=== PATIENT | female | born 1955 | race Caucasian/White ===

== ENCOUNTER 2017-02-07 07:08 | Day surgery (SDC) | payer BC ==
[2017-02-07] MEDS ORDERED: Lactated Ringers 1,000 ML IV SCH (07:15)
--- NOTE | 2017-02-07 08:50 | PCM.OPNOTE ---
- General Post-Op/Procedure Note Date of Surgery/Procedure: 02/07/17 Operative Procedure(s): c scope Findings: diverticuli ascending and sigmoid colon Pre Op Diagnosis: screening Post-Op Diagnosis: diverticuli ascending and sigmoid colon Anesthesia Technique: MAC Primary Surgeon: Uriel Preciado Anesthesia Provider: James Ramos Pathology: none Complications: None Condition: Good Free Text/Narrative:: see dictation
[2017-02-07] MEDS ORDERED: Propofol 200 MG/20 ML SDV IV ONE (09:00)
[2017-02-07 09:52] VITALS: BP 123/72
--- NOTE | 2017-02-07 10:02 | OR ---
DATE OF OPERATION: 02/07/2017 SURGEON: Uriel Preciado MD PROCEDURE PERFORMED: Colonoscopy. PREOPERATIVE DIAGNOSIS: Need for colon cancer screening. POSTOPERATIVE DIAGNOSIS: Diverticulosis of the ascending and sigmoid colon. INDICATIONS FOR PROCEDURE: This is a 62-year-old white female, who presents for screening colonoscopy. She was offered and accepted same. DESCRIPTION OF PROCEDURE: After an excellent IV sedation was administered, digital rectal exam was performed. No marked abnormality was noted. The flexible colonoscope was inserted and advanced to the cecum without difficulty. The prep was excellent. The following findings were noted. Ascending colon, scattered diverticula. Transverse colon, unremarkable. Descending colon, unremarkable. Sigmoid, mild diverticulosis, otherwise unremarkable. Rectum unremarkable. Colon was deflated, scope was removed. RECOMMENDATION: Repeat scope in 10 years. /[id number] /MODL
== END 2017-02-07 09:45 | disposition home or self-care (01) ==
LOC: FB.SDS 07:08
PROVIDERS: ATTEND Surgery
DX: Z12.11 Encounter for screening for malignant neoplasm of colon (principal); K57.30 Diverticulosis of large intestine without perforation or abscess without bleeding; I10 Essential (primary) hypertension; Z79.82 Long term (current) use of aspirin; Z79.899 Other long term (current) drug therapy; Z90.49 Acquired absence of other specified parts of digestive tract; Z96.641 Presence of right artificial hip joint; Z98.51 Tubal ligation status; Z98.890 Other specified postprocedural states; Z87.891 Personal history of nicotine dependence
CPT/HCPCS: 45378; J2704; J7120

== ENCOUNTER 2018-07-27 15:06 | Emergency (ER) | payer MEDICARE, BC ==
[2018-07-27] MEDS ORDERED: Sodium Chloride 0.9% 10 ML Syringe FLUSH PRN (15:22)
--- NOTE | 2018-07-27 15:23 | EDM.PDOC ---
ED HPI GENERAL MEDICAL PROBLEM - General Stated Complaint: FEVER,COLD Time Seen by Provider: 07/27/18 15:06 Source of Information: Reports: Patient, Family History Limitations: Reports: No Limitations - History of Present Illness INITIAL COMMENTS - FREE TEXT/NARRATIVE: 63 years old w f with h/o MM dx'd 3 years ago through a right hip fx, came to the ed with fever 3 days after she had her 3rd chemo Tx at [facility]. Pt was at the [facility] and sent to the ed for further workup. No N/v/d no Dizziness, pt feels warm and dry. No dizziness. BP 132/72 RR 20 Pulse 100 Pulse 97 Temp 39.2 Onset Date: 07/27/18 Onset Time: 07:00 Duration: Hour(s):, Day(s):, Getting Worse Location: Reports: Generalized Severity: Mild Improves with: Reports: Rest Worsens with: Reports: Movement Context: Reports: Other (multiple melanoma) Associated Symptoms: Reports: Other (fever) - Related Data Allergies Allergy/AdvReac Type Severity Reaction Status Date / Time No Known Allergies Allergy Verified 07/27/18 17:08 Home Meds: Home Meds Acetaminophen [Acetaminophen Extra Strength] 500 mg PO ASDIRECTED PRN 02/06/17 [ History] Ascorbic Acid [Vitamin C] 250 mg PO DAILY 02/06/17 [History] Aspirin [Halfprin] 81 mg PO DAILY 02/06/17 [History] Calcitriol [Rocaltrol] 0.25 mcg PO DAILY 02/06/17 [History] Cholecalciferol (Vitamin D3) [Vitamin D3] 1,000 units PO DAILY 02/06/17 [History ] Darbepoetin Abdullahi [Arenesp] 150 mcg SUBCUT ASDIRECTED 02/06/17 [History] Ferrous Sulfate 325 mg PO BID 02/06/17 [History] Ondansetron [Zofran] 8 mg PO Q8H PRN 02/06/17 [History] Sodium Bicarbonate 650 mg PO TID 02/06/17 [History] amLODIPine [Norvasc] 10 mg PO DAILY 02/06/17 [History] oxyCODONE 5 mg PO Q3H PRN 02/06/17 [History] valACYclovir [Valtrex] 500 mg PO Q48H 02/06/17 [History] Carvedilol 12.5 mg BID 07/27/18 [History] Cholestyramine/Sucrose [Cholestyramine Packet] 4 gm PO ASDIRECTED PRN 07/27/18 [ History] Pomalidomide [Pomalyst] 3 mg ASDIRECTED 07/27/18 [History] Sulfamethoxazole/Trimethoprim [Sulfamethoxazole-Tmp Ds Tablet] 1 tab MOWEFR [History] Past Medical History HEENT History: Reports: None Cardiovascular History: Reports: Hypertension Other Respiratory History: halfway smoker. Genitourinary History: Reports: Renal Disease [employer] History: Reports: Neurological History: Reports: None Psychiatric History: Reports: None Endocrine/Metabolic History: Reports: Multinodular Thyroid Hematologic History: Reports: Blood Transfusion(s), Iron Deficiency Immunologic History: Reports: None Oncologic (Cancer) History: Reports: Other (See Below) Other Oncologic History: MULTIPLE MYELOMA CA Dermatologic History: Reports: None - Past Surgical History Head Surgeries/Procedures: Reports: None GI Surgical History: Reports: Appendectomy Female Surgical History: Reports: Section, Tubal Ligation Endocrine Surgical History: Reports: Thyroid Biopsy Musculoskeletal Surgical History: Reports: Hip Replacement Social & Family History - Caffeine Use Caffeine Use: Reports: Coffee, Soda ED ROS GENERAL - Review of Systems Review Of Systems: See Below Constitutional: Reports: No Symptoms HEENT: Reports: No Symptoms Respiratory: Reports: No Symptoms Cardiovascular: Reports: No Symptoms Endocrine: Reports: No Symptoms GI/Abdominal: Reports: No Symptoms : Reports: No Symptoms Musculoskeletal: Reports: No Symptoms Skin: Reports: No Symptoms Neurological: Reports: No Symptoms Psychiatric: Reports: No Symptoms Hematologic/Lymphatic: Reports: No Symptoms Immunologic: Reports: No Symptoms ED EXAM, GENERAL - Physical Exam Exam: See Below Exam Limited By: No Limitations General Appearance: Alert, WD/WN, Mild Distress, Thin Eye Exam: Bilateral Eye: Normal Inspection Ears: Normal External Exam, Normal Canal, Hearing Grossly Normal Ear Exam: Bilateral Ear: Auricle Normal Nose: Normal Inspection, Normal Mucosa, No Blood Throat/Mouth: Normal Inspection, Normal Lips, Normal Voice, No Airway Compromise Head: Atraumatic, Normocephalic Neck: Normal Inspection, Supple, Non-Tender, Full Range of Motion Respiratory/Chest: No Respiratory Distress, Lungs Clear, Normal Breath Sounds, No Accessory Muscle Use, Chest Non-Tender Cardiovascular: Normal Peripheral Pulses, Regular Rate, Rhythm, No Edema, No Gallop, No JVD, No Murmur, No Rub Peripheral Pulses: 2+: Brachial (L) GI/Abdominal: Normal Bowel Sounds, Soft, Non-Tender, No Organomegaly, No Distention, No Abnormal Bruit, No Mass, Pelvis Stable (Female) Exam: Deferred Rectal (Female) Exam: Deferred Back Exam: Normal Inspection, Full Range of Motion Extremities: Normal Inspection, Normal Range of Motion, Non-Tender, No Pedal Edema, Normal Capillary Refill Neurological: Alert, Oriented, CN II-XII Intact, Normal Cognition, Normal Gait, Normal Reflexes, No Motor/Sensory Deficits Psychiatric: Normal Affect, Normal Mood Skin Exam: Warm, Dry, Intact, Normal Color, No Rash Lymphatic: No Adenopathy Course - Vital Signs Text/Narrative:: 63 years old w f with h/o MM dx'd 3 years ago through a right hip fx, came to the ed with fever 3 days after she had her 3rd chemo Tx at [facility]. Pt was at the [facility] clinic and sent to the ed for further workup. No N/v/d no Dizziness, pt feels warm and dry. No dizziness. BP 132/72 RR 20 Pulse 100 Pulse 97 Temp 39.2 PE: WNWD W F with decreased skin turgor and dry mouth Labs: CBC: WBC 2.2 with 60 neutrophils and 4 bands = HANS 1.6 BMP: Na 130 K 3.9 BUN 28 Ce. 1.8 GFR 29 Glc 133 Impression: 1) Neutropenia (HANS 1.6) 2)H/O Multiple Myeloma of right hip, 3)S/P chemically induced Fever after 3rd round of Chemo last Monday, Hyponatremia, CRI Tx: NS.Tylenol 4.18 pm Consultation: Higinio Weston/Ximena (Hosp/Oncologist)[place], [place]: Absolute Neutrophil count was 1.6, same as before the chemo, Chemically induced fever is suggested, Pt must check her temp BID, if above 100.5, came back to the ed Reexam: Pt's symptoms improved after hydration, pt requested to be D/C'd Plan: D/C with instructions Last Recorded V/S: Last Vital Signs Temp 37.3 C 07/27/18 17:51 Pulse 78 07/27/18 17:51 Resp 18 07/27/18 17:51 BP 106/60 07/27/18 17:51 Pulse Ox 94 L 07/27/18 17:51 - Orders/Labs/Meds Orders: Active Orders 24 hr Category Date Time Status CXR [Chest 2V] [CR] Stat Exams 07/27/18 16:58 Taken CULTURE BLOOD [BC] Urgent Lab 07/27/18 15:35 Received CULTURE BLOOD [BC] Urgent Lab 07/27/18 15:40 Received CULTURE STREP A CONFIRMATION [RM] Stat Lab 07/27/18 15:45 Results STREP SCRN A RAPID W CULT CONF [RM] Stat Lab 07/27/18 15:45 Results Blood Culture x2 Reflex Set [OM.PC] Urgent Oth 07/27/18 15:20 Ordered Peripheral IV Insertion Adult [OM.PC] Routine Oth 07/27/18 15:22 Ordered Labs: Laboratory Tests 07/27/18 07/27/18 07/27/18 Range/Units 15:20 15:35 15:35 WBC 2.5 L (4.5-12.0) X10-3/uL RBC 3.55 (3.23-5.20) x10(6)uL Hgb 13.0 (11.5-15.5) g/dL Hct 36.2 (30.0-51.3) % MCV 102.0 H (80-96) fL MCH 36.7 H (27.7-33.6) pg MCHC 36.0 H (32.2-35.4) g/dL RDW 13.5 (11.5-15.5) % Plt Count 90 L (125-369) X10(3)uL MPV 8.7 (7.4-10.4) fL Add Manual Diff Yes Neutrophils % (Manual) 60 (46-82) % Band Neutrophils % 4 (0-6) % Lymphocytes % (Manual) 8 L (13-37) % Monocytes % (Manual) 28 H (4-12) % PT 11.0 (8.7-11.1) INR 1.13 (0.89-1.13) Sodium (135-145) mmol/L Potassium (3.5-5.3) mmol/L Chloride (100-110) mmol/L Carbon Dioxide (21-32) mmol/L BUN (7-18) mg/dL Creatinine (0.55-1.02) mg/dL Est Cr Clr Drug Dosing Estimated GFR (MDRD) (>60) BUN/Creatinine Ratio (9-20) Glucose (80-116) mg/dL Lactic Acid (0.4-2.2) mmol/L Calcium (8.6-10.2) mg/dL Urine Color Yellow (YELLOW) Urine Appearance Clear (CLEAR) Urine pH 7.0 H (5.0-6.5) Ur Specific [place] 1.010 (1.010-1.025) Urine Protein Negative (NEGATIVE) mg/dL Urine Glucose (UA) Normal (NEGATIVE) mg/dL Urine Ketones Negative (NEGATIVE) mg/dL Urine Occult Blood Moderate H (NEGATIVE) Urine Nitrite Negative (NEGATIVE) Urine Bilirubin Negative (NEGATIVE) Urine Urobilinogen Normal (NEGATIVE) mg/dL Ur Leukocyte Esterase Negative (NEGATIVE) Urine RBC 5-10 (0) Urine WBC 0-5 (0) Ur Squamous Epith Cells Occasional (NS,R,O) Urine Bacteria Few H (NS) 07/27/18 07/27/18 Range/Units 15:35 15:35 WBC (4.5-12.0) X10-3/uL RBC (3.23-5.20) x10(6)uL Hgb (11.5-15.5) g/dL Hct (30.0-51.3) % MCV (80-96) fL MCH (27.7-33.6) pg MCHC (32.2-35.4) g/dL RDW (11.5-15.5) % Plt Count (125-369) X10(3)uL MPV (7.4-10.4) fL Add Manual Diff Neutrophils % (Manual) (46-82) % Band Neutrophils % (0-6) % Lymphocytes % (Manual) (13-37) % Monocytes % (Manual) (4-12) % PT (8.7-11.1) INR (0.89-1.13) Sodium 130 L (135-145) mmol/L Potassium 3.9 (3.5-5.3) mmol/L Chloride 96 L (100-110) mmol/L Carbon Dioxide 22 (21-32) mmol/L BUN 28 H (7-18) mg/dL Creatinine 1.8 H (0.55-1.02) mg/dL Est Cr Clr Drug Dosing TNP Estimated GFR (MDRD) 29 L (>60) BUN/Creatinine Ratio 15.6 (9-20) Glucose 133 H (80-116) mg/dL Lactic Acid 1.6 (0.4-2.2) mmol/L Calcium 8.6 (8.6-10.2) mg/dL Urine Color (YELLOW) Urine Appearance (CLEAR) Urine pH (5.0-6.5) Ur Specific [place] (1.010-1.025) Urine Protein (NEGATIVE) mg/dL Urine Glucose (UA) (NEGATIVE) mg/dL Urine Ketones (NEGATIVE) mg/dL Urine Occult Blood (NEGATIVE) Urine Nitrite (NEGATIVE) Urine Bilirubin (NEGATIVE) Urine Urobilinogen (NEGATIVE) mg/dL Ur Leukocyte Esterase (NEGATIVE) Urine RBC (0) Urine WBC (0) Ur Squamous Epith Cells (NS,R,O) Urine Bacteria (NS) Meds: Medications Discontinued Medications Generic Name Dose Route Start Last Admin Trade Name Freq PRN Reason Stop Dose Admin Acetaminophen 650 mg 07/27/18 15:28 07/27/18 15:34 Tylenol PO 07/27/18 15:29 Not Given ONETIME ONE Acetaminophen Confirm 07/27/18 15:31 07/27/18 15:34 Tylenol Administered 07/27/18 15:32 650 mg Dose Administration 650 mg .ROUTE .STK-MED ONE Sodium Chloride 1,000 mls @ 999 mls/hr 07/27/18 16:37 07/27/18 16:53 Normal Saline IV 07/27/18 17:37 999 mls/hr .BOLUS ONE Administration Sodium Chloride 10 ml 07/27/18 15:22 Saline Flush FLUSH ASDIRECTED PRN Keep Vein Open Departure - Departure Time of Disposition: 16:53 Disposition: Home, Self-Care 01 Condition: Good Clinical Impression: Multiple myeloma, Fever, Drug-induced low platelet count, Dehydration - Discharge Information Instructions: Fever, Adult, [id number] Referrals: Aby Dennis NP [Primary Care Provider] - Forms: ED Department Discharge Additional Instructions: Please increase water intake, Check your Temp twice daily, if Temp is above 100.5, come back to the ED. Take Tylenol for fever. Please come back if your symptoms get worse acutely. - My Orders Last 24 Hours: My Active Orders 07/27/18 15:20 Blood Culture x2 Reflex Set [OM.PC] Urgent 07/27/18 15:22 Peripheral IV Insertion Adult [OM.PC] Routine 07/27/18 15:35 CULTURE BLOOD [BC] Urgent 07/27/18 15:40 CULTURE BLOOD [BC] Urgent 07/27/18 15:45 CULTURE STREP A CONFIRMATION [RM] Stat STREP SCRN A RAPID W CULT CONF [RM] Stat 07/27/18 16:58 CXR [Chest 2V] [CR] Stat - Assessment/Plan Last 24 Hours: My Active Orders 07/27/18 15:20 Blood Culture x2 Reflex Set [OM.PC] Urgent 07/27/18 15:22 Peripheral IV Insertion Adult [OM.PC] Routine 07/27/18 15:35 CULTURE BLOOD [BC] Urgent 07/27/18 15:40 CULTURE BLOOD [BC] Urgent 07/27/18 15:45 CULTURE STREP A CONFIRMATION [RM] Stat STREP SCRN A RAPID W CULT CONF [RM] Stat 07/27/18 16:58 CXR [Chest 2V] [CR] Stat
[2018-07-27] MEDS ORDERED: Acetaminophen Soln 650 MG/20.3 ML UD Cup PO ONE (15:28)
[2018-07-27] MEDS ORDERED: Acetaminophen 325 MG Tab ONE (15:31)
[2018-07-27] MEDS ORDERED: Sodium Chloride 0.9% 1,000 ML IV ONE (16:37)
[2018-07-27 19:23] VITALS: BP 106/60
--- NOTE | 2018-07-30 11:11 | CR ---
INDICATION: Fever. CHEST: Two PA views and a lateral view of the chest were obtained 07/27/18 - no comparisons. The heart is normal in size and shape. Mediastinum was unremarkable. Minimal dextroconvex scoliosis of the mid thoracic spine is noted. An active infiltrate or effusion was not identified. IMPRESSION: No acute process. Report was called to Dr. Stringer at approximately 1707 hours on 07/27/18. [facility] PS[facility]CH[facility]ATR[facility] CENTERDaiana
== END 2018-07-27 18:06 | disposition home or self-care (01) ==
LOC: FB.ED 15:06
DX: C90.00 Multiple myeloma not having achieved remission (principal); R50.2 Drug induced fever; D70.2 Other drug-induced agranulocytosis; T45.1X5A Adverse effect of antineoplastic and immunosuppressive drugs, initial encounter; I10 Essential (primary) hypertension; N18.9 Chronic kidney disease, unspecified; Z79.82 Long term (current) use of aspirin; Z79.899 Other long term (current) drug therapy; Z87.891 Personal history of nicotine dependence
CPT/HCPCS: 36415; 71046; 80048; 81001; 83605; 85025; 85610; 87040; 87081; 87880-QW; 96360; 99284; A9270-GY; J7030

== ENCOUNTER 2022-06-03 16:28 | Inpatient (IN) | payer MEDICARE, BC ==
[2022-06-03] MEDS ORDERED: Albuterol/Ipratropium 3.0-0.5 MG/3 ML Neb Soln NEB ONE (17:11)
[2022-06-03 17:13] LABS: ESTIMATED GFR 42 mL/min (>60)
[2022-06-03 17:24] LABS: BASE EXCESS VENOUS,POC -3 mmol/L (-2 - 3+); PCO2 VENOUS,POC 30 mmHg (41-51); PH VENOUS,POC 7.44 pH Units (7.32-7.43)
[2022-06-03] MEDS ORDERED: Sodium Chloride 0.9% 1,000 ML IV SCH ×2 (18:00→21:00)
[2022-06-03] MEDS ORDERED: Iopamidol 755 Mg/ML 75 ML Bottle IV ONE ×2 (18:06→18:41)
[2022-06-03] MEDS ORDERED: Ondansetron 4 MG/2 ML SDV IV PRN (20:48)
[2022-06-03] MEDS ORDERED: Albuterol 0.083% 2.5 MG/3 ML Neb Soln NEB PRN (20:48)
[2022-06-03] MEDS ORDERED: REMDESIVIR 100 MG in Sodium Chloride 0.9% 100 ML IV SCH (21:00)
[2022-06-03] MEDS ORDERED: REMDESIVIR 200 MG in Sodium Chloride 0.9% 250 ML IV ONE (21:00)
[2022-06-03] MEDS: Enoxaparin 40 MG/0.4 ML Syringe SUBCUT SCH (21:11)
[2022-06-03] MEDS: Albuterol/Ipratropium 3.0-0.5 MG/3 ML Neb Soln NEB SCH (21:12)
[2022-06-03] MEDS: Sodium Chloride 0.9% 10 ML Syringe FLUSH PRN (21:25)
[2022-06-03] MEDS ORDERED: Cholestyramine/Sucrose Powder 4 GM Packet PO PRN (21:42)
[2022-06-03] MEDS ORDERED: oxyCODONE 5 MG Tab PO PRN (21:42)
[2022-06-03] MEDS ORDERED: Acetaminophen 500 MG Tab PO PRN (21:42)
[2022-06-03] MEDS ORDERED: DARBEPOETIN ALFA 25 MCG/0.42 ML SUBCUT SCH (21:45)
[2022-06-03] MEDS: Dexamethasone 4 MG/ML SDV IVPUSH SCH (21:56)
[2022-06-04] MEDS: Albuterol/Ipratropium 3.0-0.5 MG/3 ML Neb Soln NEB SCH ×4 (06:34→20:44)
[2022-06-04 06:43] LABS: ESTIMATED GFR 50 mL/min (>60)
[2022-06-04] MEDS ORDERED: Sulfamethoxazole/Trimethoprim 400-80 MG Tab PO SCH (09:00)
[2022-06-04] MEDS: Carvedilol 12.5 MG Tab PO SCH ×2 (09:19→20:43)
[2022-06-04] MEDS: Benzonatate 100 MG Cap PO SCH ×3 (09:20→20:42)
[2022-06-04] MEDS: amLODIPine 10 MG Tab PO SCH (09:20)
[2022-06-04] MEDS: valACYclovir 500 MG Tab PO SCH (09:21)
[2022-06-04] MEDS: Ascorbic Acid 500 MG Tab PO SCH ×2 (09:21→20:40)
[2022-06-04] MEDS: Cholecalciferol (Vitamin D3) 25 MCG Tab PO SCH (09:22)
[2022-06-04] MEDS ORDERED: Azithromycin 500 MG Tab PO ONE (09:28)
[2022-06-04] MEDS ORDERED: cefTRIAXone 1 GM in Sodium Chloride 0.9% 50 ML IV SCH (09:30)
[2022-06-04] MEDS: Sodium Chloride 0.9% 10 ML Syringe FLUSH PRN ×3 (10:03→21:59)
[2022-06-04] MEDS: Dexamethasone 4 MG/ML SDV IVPUSH SCH (10:04)
[2022-06-04] MEDS: cefTRIAXone 1 GM Vial IVPUSH SCH (11:04)
[2022-06-04] MEDS ORDERED: Sulfamethoxazole/Trimethoprim 800-160 MG Tab PO SCH (11:50)
[2022-06-04] MEDS: Calcitriol 0.25 MCG Cap PO SCH (11:54)
[2022-06-04] MEDS: Sulfamethoxazole/Trimethoprim 800-160 MG Tab PO SCH (11:59)
[2022-06-04] MEDS: Enoxaparin 40 MG/0.4 ML Syringe SUBCUT SCH (20:43)
[2022-06-04] MEDS: REMDESIVIR 100 MG in Sodium Chloride 0.9% 100 ML IV SCH (20:51)
[2022-06-05] MEDS: Albuterol/Ipratropium 3.0-0.5 MG/3 ML Neb Soln NEB SCH ×4 (06:19→20:41)
[2022-06-05 06:50] LABS: ESTIMATED GFR 46 mL/min (>60)
[2022-06-05] MEDS ORDERED: Acetaminophen 500 MG Tab PO PRN (07:55)
[2022-06-05] MEDS: Carvedilol 12.5 MG Tab PO SCH ×2 (09:28→20:41)
[2022-06-05] MEDS: amLODIPine 10 MG Tab PO SCH (09:29)
[2022-06-05] MEDS: Azithromycin 250 MG Tab PO SCH (09:30)
[2022-06-05] MEDS: Cholecalciferol (Vitamin D3) 25 MCG Tab PO SCH (09:30)
[2022-06-05] MEDS: Calcitriol 0.25 MCG Cap PO SCH (09:35)
[2022-06-05] MEDS: Sulfamethoxazole/Trimethoprim 800-160 MG Tab PO SCH (09:37)
[2022-06-05] MEDS: Benzonatate 100 MG Cap PO SCH ×3 (09:47→20:40)
[2022-06-05] MEDS: valACYclovir 500 MG Tab PO SCH (09:47)
[2022-06-05] MEDS: Ascorbic Acid 500 MG Tab PO SCH ×2 (09:47→20:41)
[2022-06-05] MEDS: Dexamethasone 4 MG/ML SDV IVPUSH SCH (09:48)
[2022-06-05] MEDS ORDERED: Loperamide 2 MG Cap PO PRN (10:20)
[2022-06-05] MEDS: cefTRIAXone 1 GM Vial IVPUSH SCH (11:22)
[2022-06-05] MEDS: Enoxaparin 40 MG/0.4 ML Syringe SUBCUT SCH (20:42)
[2022-06-05] MEDS: Sodium Chloride 0.9% 10 ML Syringe FLUSH PRN ×2 (20:48→21:57)
[2022-06-05] MEDS: REMDESIVIR 100 MG in Sodium Chloride 0.9% 100 ML IV SCH (20:50)
[2022-06-06] MEDS: Albuterol/Ipratropium 3.0-0.5 MG/3 ML Neb Soln NEB SCH ×4 (06:14→20:02)
[2022-06-06 06:57] LABS: ESTIMATED GFR 42 mL/min (>60)
[2022-06-06] MEDS: Sodium Chloride 0.9% 10 ML Syringe FLUSH PRN ×5 (09:00→21:41)
[2022-06-06] MEDS: Carvedilol 12.5 MG Tab PO SCH ×2 (09:20→20:03)
[2022-06-06] MEDS: Dexamethasone 4 MG/ML SDV IVPUSH SCH (09:21)
[2022-06-06] MEDS: amLODIPine 10 MG Tab PO SCH (09:21)
[2022-06-06] MEDS: Calcitriol 0.25 MCG Cap PO SCH (09:22)
[2022-06-06] MEDS: Benzonatate 100 MG Cap PO SCH ×3 (09:22→17:07)
[2022-06-06] MEDS: Sulfamethoxazole/Trimethoprim 400-80 MG Tab PO SCH (09:22)
[2022-06-06] MEDS: Cholecalciferol (Vitamin D3) 25 MCG Tab PO SCH (09:23)
[2022-06-06] MEDS: Ascorbic Acid 500 MG Tab PO SCH ×2 (09:23→20:02)
[2022-06-06] MEDS: Azithromycin 250 MG Tab PO SCH (09:24)
[2022-06-06] MEDS: valACYclovir 1,000 MG Tab PO SCH (09:41)
[2022-06-06] MEDS: cefTRIAXone 1 GM Vial IVPUSH SCH (11:09)
[2022-06-06] MEDS ORDERED: Benzonatate 100 MG Cap PO PRN (17:40)
[2022-06-06] MEDS: Enoxaparin 40 MG/0.4 ML Syringe SUBCUT SCH (20:03)
[2022-06-06] MEDS: REMDESIVIR 100 MG in Sodium Chloride 0.9% 100 ML IV SCH (20:03)
[2022-06-07] MEDS: Albuterol/Ipratropium 3.0-0.5 MG/3 ML Neb Soln NEB SCH ×2 (06:26→10:58)
[2022-06-07 06:44] LABS: ESTIMATED GFR 46 mL/min (>60)
[2022-06-07] MEDS: Carvedilol 12.5 MG Tab PO SCH (08:20)
[2022-06-07] MEDS: amLODIPine 10 MG Tab PO SCH (08:21)
[2022-06-07] MEDS: Calcitriol 0.25 MCG Cap PO SCH (08:21)
[2022-06-07] MEDS: Ascorbic Acid 500 MG Tab PO SCH (08:22)
[2022-06-07] MEDS: valACYclovir 1,000 MG Tab PO SCH (08:22)
[2022-06-07] MEDS: Cholecalciferol (Vitamin D3) 25 MCG Tab PO SCH (08:23)
[2022-06-07] MEDS: Azithromycin 250 MG Tab PO SCH (08:23)
[2022-06-07] MEDS: Sulfamethoxazole/Trimethoprim 400-80 MG Tab PO SCH (08:24)
[2022-06-07 08:36] VITALS: BP 113/69
[2022-06-07] MEDS: Dexamethasone 4 MG/ML SDV IVPUSH SCH (08:49)
[2022-06-07] MEDS: Sodium Chloride 0.9% 10 ML Syringe FLUSH PRN ×2 (08:49→10:27)
[2022-06-07] MEDS ORDERED: cefTRIAXone 1 GM Vial IVPUSH SCH (10:00)
[2022-06-07 12:29] VITALS: PULSE 83
== END 2022-06-07 11:30 | disposition home health service (06) | DRG 177 ==
LOC: FB.ED 16:28 → FB.MS 20:30 → UNDOADMIN 20:30 → FB.MS 20:48
PROVIDERS: ADMIT Emergency Medicine; ATTEND Family Medicine
PROC: XW033E5 Introduction of Remdesivir Anti-infective into Peripheral Vein, Percutaneous Approach, New Technology Group 5 (ICD-10-PCS; principal; 2022-06-03)
PROC: 3E0333Z Introduction of Anti-inflammatory into Peripheral Vein, Percutaneous Approach (ICD-10-PCS; 2022-06-03)
DX: U07.1 COVID-19 (principal); R09.02 Hypoxemia; J18.9 Pneumonia, unspecified organism; J96.01 Acute respiratory failure with hypoxia; C90.00 Multiple myeloma not having achieved remission; K52.1 Toxic gastroenteritis and colitis; R79.1 Abnormal coagulation profile; E86.0 Dehydration; D69.6 Thrombocytopenia, unspecified; I12.9 Hypertensive chronic kidney disease with stage 1 through stage 4 chronic kidney disease, or unspecified chronic kidney disease; N18.9 Chronic kidney disease, unspecified; Z79.899 Other long term (current) drug therapy; E61.1 Iron deficiency; Z90.89 Acquired absence of other organs; Z98.51 Tubal ligation status; Z96.641 Presence of right artificial hip joint; Z87.891 Personal history of nicotine dependence; E04.2 Nontoxic multinodular goiter
CPT/HCPCS: 36415; 71275; 80053; 83880; 84484; 85025; 85379; 85610; 85730; 93005; 94640; 96360; 99285; J7030; Q9967 ×2; 80048; 85027; 94150; A9270-GY; J0696; J1100; J1650; J3490; J7050; J7620